=== PATIENT | female | born 1970 | race Caucasian/White ===

== ENCOUNTER → 2017-01-04 | Outpatient (CLI) | payer MEDICARE ==
[2017-01-04 09:44] LABS: HEMOGLOBIN 13.6 gm/dl (12.3-15.3); RED BLOOD COUNT 4.41 M/UL (4.00-5.10); WHITE BLOOD COUNT 6.5 K/UL (4.5-11.0)
[2017-01-04 09:53] LABS: BUN/CREATININE RATIO 29 (0-10)
== END ==
LOC: LAB 08:43
PROVIDERS: Emergency Medicine
DX: E11.65 Type 2 diabetes mellitus with hyperglycemia (principal); E03.8 Other specified hypothyroidism; E11.42 Type 2 diabetes mellitus with diabetic polyneuropathy; E11.69 Type 2 diabetes mellitus with other specified complication; E78.2 Mixed hyperlipidemia; G44.89 Other headache syndrome; I10 Essential (primary) hypertension; K29.00 Acute gastritis without bleeding; K52.89 Other specified noninfective gastroenteritis and colitis; K59.1 Functional diarrhea; R07.89 Other chest pain; R10.13 Epigastric pain; R10.817 Generalized abdominal tenderness; R11.2 Nausea with vomiting, unspecified; R23.8 Other skin changes; R53.83 Other fatigue
CPT/HCPCS: 36415; 80053; 80061; 82043; 82570; 83036; 83704; 85027